=== PATIENT | female | born 1980 | race Caucasian/White ===

== ENCOUNTER → 2017-10-05 19:25 | Outpatient (CLI) | payer MEDICAID ==
[2015-04-04 15:30] VITALS: BMI 35.9
[~2017-10-05 19:25] MED LIST: ADDERALL 10 MG10 MG PO; FISH OIL 500 MG1 CAP PO; KLONOPIN1 MG PO; METHOTREXATE2.5 MG PO; MULTIPLE VITAMI1 TA1 PO; PERCOCET 5-3251 TAB PO; SOMA350 MG PO; VITAMIN D2000 UNIT PO
== END | disposition home or self-care (01) ==
LOC: D.SLEEP 19:25
DX: G47.33 Obstructive sleep apnea (adult) (pediatric) (principal); Z01.812 Encounter for preprocedural laboratory examination